=== PATIENT | female | born 1965 ===

== ENCOUNTER 2023-07-30 21:12 | Emergency (ER) | payer OTHER, SELFPAY ==
[2023-07-30 21:14] VITALS: BP 140/88
[2023-07-30 22:53] VITALS: BP 136/78
--- NOTE | 2023-07-30 23:21 | ED.GENMED ---
History of Present Illness
General
Chief Complaint: DVT/Possible Blood Clot
Source: patient
Exam Limitations: none
Time Seen by Provider: 07/30/23 22:47
Nursing documentation reviewed up to this point in time: agreed with
Travel History
Have you had any contact with someone who has COVID-19?: No
Do you have any symptoms of coronavirus? Fever > 100 degrees, chills, cough, shortness of breath, sore throat, loss of taste or smell, muscle aches, or headache?: No
History of Present Illness
History of Present Illness:
57-year-old female with no significant past medical history states she felt soreness in the left calf for the past 3 days, no recollection of overuse or injury. She noted bruising in the mid to lower calf area today. Denies chest pain or trouble
breathing.
Past History
Past History
ED Past Medical History: None
ED Past Surgical History: Appendectomy and Gynecological
Social History
Tobacco: Non-smoker
Alcohol: None
Personal:
Living: with family
Employment: Employed
Review of Systems
Review of Systems
Allergies reviewed?: Yes
All Other Systems: ROS reviewed and negative except as documented in HPI and ROS
Constitutional: Denies fever
Respiratory: Denies trouble breathing
Cardiac: Denies chest pain
Musculoskeletal: Reports other (Soreness and bruising left calf)
Phy Exam
Physical Exam
Physical Exam:
GENERAL: No acute distress. A&Ox3.
CONSTITUTIONAL: Afebrile.
RESPIRATORY: Regular respirations, nonlabored, lungs clear.
CARDIOVASCULAR: Regular rate and rhythm, no murmurs, no rubs.
MUSCULOSKELETAL: Mild tenderness to palpation left calf. No significant swelling. There is mild bluish-green ecchymosis mid to lower calf. Distal neurovascular intact. Moves with ease. Well perfused.
SKIN: Warm, dry, pink
PSYCH: Normal mood and affect. Well kept, interactive and appropriate
NEUROLOGIC: Awake, alert and oriented. No focal neurological deficits
Course
Orders/Labs/Results
Orders:
Orders
07/30/23 21:19
Periph Venous Lwr Ext Left US [US Periph Venous LOWER Ext LT] Urgent
Comment:
Reason For Exam: POSTERIOR CALF PAIN SWELLING
Vital Signs
Initial and Last Documented VS:
Initial Vital Signs
Temp Pulse Resp BP Pulse Ox
97.9 F 66 18 140/88 100
07/30/23 21:14 07/30/23 21:14 07/30/23 21:14 07/30/23 21:14 07/30/23 21:14
Last Documented Vital Signs
Temp Pulse Resp BP Pulse Ox
97.9 F 70 18 136/78 100
07/30/23 21:14 07/30/23 22:53 07/30/23 22:53 07/30/23 22:53 07/30/23 22:53
MDM/Problems Addressed
Differential Diagnosis Includes:
DVT, calf muscle strain
MDM/Problems Addressed:
57-year-old female with no significant past medical history states she felt soreness in the left calf for the past 3 days, no recollection of overuse or injury. She noted bruising in the mid to lower calf area today. Denies chest pain or trouble
breathing.
Ultrasound negative for DVT
Patient reassured
*Critical Care Note
Total Time (30-74mins, 75-104mins- exclusive of procedures): Not Applicable
ED Attending Note
-
Portions of this chart may have been created with voice recognition software.� Occasional wrong word or��sound alike� substitutions may have occurred due to the inherent limitations of voice recognition software.
Discharge Plan
Departure
Patient Disposition: Home (Routine Discharge)
Date of Disposition: 07/30/23
Time of Disposition: 23:18
Patient with high blood pressure during this ER visit?: No
Condition: Good
Discharge Problem:
Strain of left calf muscle
Instructions: Muscle strain
Referrals:
Juventino Crawford MD [Family Provider] - As needed
Activity Restrictions/Additional Instructions:
As we discussed, your ultrasound is negative for clot.
It looks like you may have micro torn some of the muscle fibers in your calf causing the bleeding.
Cantil may pull some of that blood down causing bruising along the foot
Interventions
Interventions:
*Risk Screen - Suicide Last Done: 07/30/23 21:14
*General Assessment Last Done: 07/30/23 22:53
*Neglect/Abuse Screening Last Done: 07/30/23 21:14
ED- Fall Risk Assessment Last Done: 07/30/23 22:53
*ED COVID-19 Vaccine History Last Done: 07/30/23 22:53
*Nursing Disposition Last Done: 07/30/23 23:14
ED-Skin Assessment Last Done: 07/30/23 22:53
ED- Pulmonary Assessment Last Done: 07/30/23 22:53
ED-Musculoskeletal Assessment Last Done: 07/30/23 22:53
ED- Cardiac Assessment Last Done: 07/30/23 22:53
== END 2023-07-30 23:25 | disposition home or self-care (01) ==
LOC: EMR 21:12
PROVIDERS: EMERGENCY PHYSICIAN Emergency Medicine; FAMILY PHYSICIAN Internal Medicine
DX: S86.112A Strain of other muscle(s) and tendon(s) of posterior muscle group at lower leg level, left leg, initial encounter (principal); X58.XXXA Exposure to other specified factors, initial encounter
CPT/HCPCS: 99284; 93971